=== PATIENT | male | born 1990 | race Caucasian/White ===

== ENCOUNTER 2020-01-28 08:57 | Emergency (ER) | payer OTHER ==
[~2020-01-28] VITALS: Ht 182.9 cm; Wt 152.3 kg
[2020-01-28 10:04] LABS: HEMATOCRIT 48.5 % (42.0-52.0); HEMOGLOBIN 15.5 g/dl (13.5-17.5); MEAN CORPUSCULAR HEMOGLOBIN 28.1 pg (27.0-33.0); MEAN CORPUSCULAR VOLUME 87.9 fl (80.0-96.0); PLATELET COUNT, AUTOMATED 305 10^3/uL (150-450); RED BLOOD COUNT 5.52 10^6/uL (4.30-6.10); WHITE BLOOD COUNT 6.9 10^3/uL (4.0-10.0)
[2020-01-28 10:21] LABS: AMPHETAMINES LEVEL URINE NEGATIVE (NEGATIVE); BARBITURATES URINE NEGATIVE (NEGATIVE); BENZODIAZEPINES URINE NEGATIVE (NEGATIVE); CANNABINOIDS URINE NEGATIVE (NEGATIVE); COCAINE METABOLITE URINE NEGATIVE (NEGATIVE); METHADONE URINE NEGATIVE (NEGATIVE); OPIATES URINE NEGATIVE (NEGATIVE); PHENCYCLIDINE URINE NEGATIVE (NEGATIVE)
[2020-01-28 10:36] LABS: ACETAMINOPHEN LEVEL < 2.0 UG/ML (10.0-30.0); ALBUMIN 4.2 GM/DL (3.2-5.2); ALT/SGPT 330 U/L (12-78); BILIRUBIN,DIRECT 0.3 MG/DL (0.0-0.2); BLOOD UREA NITROGEN 15 MG/DL (7-18); CALCIUM LEVEL 9.3 MG/DL (8.5-10.1); CARBON DIOXIDE LEVEL 26 MEQ/L (21-32); CHLORIDE LEVEL 106 MEQ/L (98-107); CREATININE FOR GFR 1.06 MG/DL (0.70-1.30); ETHYL ALCOHOL (ETHANOL) < 0.003 % (0.000-0.010); GLOMERULAR FILTRATION RATE > 60.0 (>60); GLUCOSE, FASTING 113 MG/DL (70-100); POTASSIUM SERUM 4.2 MEQ/L (3.5-5.1); SALICYLATE LEVEL < 1.7 MG/DL (5.0-30.0); SODIUM LEVEL 139 MEQ/L (136-145); TOTAL PROTEIN 7.6 GM/DL (6.4-8.2)
[2020-01-28] MEDS ORDERED: ACETAMINOPHEN TAB 650MG DOSE (2X325MG) PO ONE (17:45)
--- NOTE | 2020-01-29 09:33 | ECGEPIP ---
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
[2020-01-29 14:49] VITALS: BP 140/66
== END 2020-01-30 02:26 ==
LOC: M ED 08:57 → CANBEDREQ 01-29 16:43 → M ED 01-30 02:26
DX: R45.851 Suicidal ideations (principal)
CPT/HCPCS: 80048; 80076; 80307; 84443; 85027; 93005; 99284; G0480; U0002

== ENCOUNTER 2020-03-13 11:28 | Day surgery (SDC) | payer OTHER ==
[~2020-03-13] VITALS: Ht 182.9 cm; Wt 148.3 kg
[~2020-03-13 11:28] MED LIST: KETOROLAC 60MG 2ML VIAL As Ordered ONE; LIDOCAINE 2% 100MG/5ML SDV (FOR ANES.) As Ordered ONE; MIDAZOLAM INJ 2MG/2ML VIAL (J2250 PER 1MG) As Ordered ONE; ONDANSETRON 4MG/2ML VIAL As Ordered ONE; dexameTHASONE 4 MG/ML 1ML VIAL (J1100 PER 1MG) As Ordered ONE; fentaNYL 250 MCG/5 ML INJECTION (J3010) As Ordered ONE; propofoL 200 MG/20 ML VIAL As Ordered ONE
[2020-03-13] MEDS ORDERED: ceFAZolin SOD 1 GM in D5W MINI-BAG PLUS 50 ML IV ONE (12:00)
[2020-03-13] MEDS ORDERED: ceFAZolin SOD 2 GM in IV 1 EA IV ONE (12:00)
[2020-03-13] MEDS ORDERED: ROPIvacaine 0.5% 30ML INJECTION (J2795 PER 1MG) As Ordered ONE (12:08)
[2020-03-13] MEDS ORDERED: dexameTHASONE 10MG/1ML VIAL PRES.FREE (J1100 PER 1MG) As Ordered ONE (12:08)
[2020-03-13] MEDS ORDERED: MIDAZOLAM INJ 2MG/2ML VIAL (J2250 PER 1MG) As Ordered ONE (12:09)
[2020-03-13] MEDS ORDERED: fentaNYL 100 MCG/2 ML INJECTION (J3010) As Ordered ONE (12:09)
[2020-03-13] MEDS ORDERED: LIDOCAINE 1% MDV 20ML VIAL As Ordered ONE (12:09)
[2020-03-13] MEDS: fentaNYL 100 MCG/2 ML INJECTION (J3010) IV PRN ×2 (12:27→12:28)
[2020-03-13] MEDS: MIDAZOLAM INJ 2MG/2ML VIAL (J2250 PER 1MG) IV PRN ×2 (12:27→12:53)
[2020-03-13] MEDS ORDERED: ROPIvacaine 0.5% 30ML INJECTION (J2795 PER 1MG) XX ONE (12:45)
[2020-03-13] MEDS ORDERED: dexameTHASONE 10MG/1ML VIAL PRES.FREE (J1100 PER 1MG) XX ONE (12:45)
[2020-03-13] MEDS ORDERED: LIDOCAINE 1% MDV 20ML VIAL XX ONE (12:45)
[2020-03-13] MEDS ORDERED: ACETAMINOPHEN 1000MG 100ML IV BTL (OFIRMEV) (J0131 PER 10MG) As Ordered ONE (13:03)
--- NOTE | 2020-03-13 15:58 | REP ---
INDICATION: RIGHT KNEE ARTHROSOPIC. COMPARISON: None. TECHNIQUE: Three views. 10.5 seconds of fluoroscopy time is reported. FINDINGS: A sequence of 3 last image hold fluoroscopically obtained spot radiographs of the knee document orthopedic manipulation. No laterality markers are visible. IMPRESSION: Procedural imaging. <Electronically signed by Pramod Allen > 03/13/20 [id number]
[2020-03-13] MEDS ORDERED: ONDANSETRON 4MG/2ML VIAL As Ordered ONE (16:45)
[2020-03-13] MEDS ORDERED: HYDROMORPHONE HCL 0.5 MG/ 0.5 ML SYRINGE (J1170 PER 1) IV PRN (17:00)
[2020-03-13] MEDS ORDERED: LR 1,000 ML IV SCH ×2 (17:00)
[2020-03-13] MEDS ORDERED: oxyCODONE 5MG TAB PO PRN (17:00)
[2020-03-13] MEDS ORDERED: ONDANSETRON 4MG/2ML VIAL IV PRN (17:00)
[2020-03-13] MEDS ORDERED: fentaNYL 100 MCG/2 ML INJECTION (J3010) IV PRN (17:00)
--- NOTE | 2020-03-13 18:23 | RO ---
OPERATIVE NOTE DATE OF OPERATION: 03/13/2020 PREOPERATIVE DIAGNOSES: 1. Right knee anterior cruciate ligament (ACL) tear. 2. Right knee chondromalacia. POSTOPERATIVE DIAGNOSES: 1. Right knee anterior cruciate ligament (ACL) tear. 2. Right knee chondromalacia. PROCEDURES: 1. Right knee arthroscopic-assisted anterior cruciate ligament reconstruction with hamstring autograft. 2. Right knee arthroscopic chondroplasty. SURGEON: Anson Torres M.D. MOTOR AND GENERATOR ASSEMBLER: Gideon Kiser PA-C ANESTHESIA: General with preoperative nerve block. IV FLUIDS: Lactated ringers. ESTIMATED BLOOD LOSS: 25 mL. IMPLANTS: Arthrex TightRope x1 and Arthrex 8 x 30 BioComposite screw x1, and backup BioComposite SwiveLock on the tibia x1. Closure with nylon. DESCRIPTION OF PROCEDURE: The patient was identified in the preoperative holding area where the right knee was marked. He had an adductor canal block by Anesthesia. He was brought to the operating room and placed supine on a well-padded OR table. General anesthesia was induced. Examination under anesthesia revealed range of motion from 0-125 degrees. This was limited by body habitus not stiffness. He was grossly stable with varus and valgus stress. He had a positive Summer's modestly difficult to grade due to his size. Positive pivot shift. Negative posterior drawer. No patellar instability. A well-padded size 44 tourniquet, which is our largest, was applied to the proximal thigh. He was secured to the OR table. The right leg was then prepped and draped in the normal sterile fashion with ChloraPrep from the toes up to the tourniquet. He received 3 grams of IV cefazolin for antibiotic prophylaxis. Due to the patient's morbid obesity, this added a significant complexity to the case. Specifically, it more than doubled the time to harvest his hamstring tendons and made it difficult stabilizing his knee, including getting FlipCutter device to fit properly and also made it more challenging for hardware placement and fixation. Therefore, we will be requesting a modifier 22. So after a time-out per hospital protocol, the right leg was exsanguinated with an Esmarch bandage and the tourniquet inflated to 300 mmHg. The knee was insufflated with lactated ringers. Standard modified anterolateral portal was made with a #11 blade, 30-degree arthroscope introduced into the joint and diagnostic arthroscopy carried out. There was chondromalacia on the patella essentially grade 2. The medial and lateral facets were in good position. Trochlea in good condition. No loose bodies. Medial gutter was inspected. He already had osteophytes coming off the medial femoral condyle due to osteoarthritis from his obesity. Grade 1 chondromalacia in the medial compartment. No medial meniscus tears. Some of his ACL fibers were still present and scarred into the PCL; however, a large portion of fibers had torn off the femur and were flipped into the lateral compartment. The lateral meniscus was intact. The leg was brought out to the [id number] position with grade 1 chondromalacia. An anteromedial portal was created under direct visualization and on probing the ACL, it was under very poor tension. The shaver was used to remove all remaining ACL fibers. There was a positive empty notch sign prior to that. Medial and lateral meniscus were probed and there were no tears. Chondroplasty to the patella and medial femoral condyle. The knee was irrigated and drained. We then proceed with hamstring tendon autograft harvest. A 3 cm incision made with a 15-blade over the pes bursa. Dissection through extensive subcutaneous fat down to the bone. The hamstring tendons were palpable and a fresh 15-blade was used to incise the sartorius fascia in oblique fashion along the proximal extent of the gracilis. Hemostasis obtained with electrocautery. Two large [facility] retractors were used during that dissection. A fresh 15-blade was used to sharply elevate the far lateral extent of the gracilis and semi-t to obtain maximal length. Great care was taken to avoid any damage to the underlying medial collateral ligaments. So once the gracilis and semitendinosus were sharply elevated off the tibia, the border between the two was identified and developed. Each tail was whipstitched with #2 FiberWire in a running locking Krackow fashion. Any visible fascial bands were sharply divided with scissors. Blunt finger dissection was then carried out; again, the patient's morbid obesity added great difficulty to the preparing of the tendons to avoid premature amputation of his hamstrings; and given him being under 30 years old, it was very important to avoid using any allograft. So the open tendon stripper was then used to successfully harvest the gracilis and semitendinosus. They appeared to be of good quality and size. On the back table, my instructional assistant prepared the graft by scraping off the muscle and then whipstitching each end. These were doubled over and then placed under tension on the Graftmaster and sized to a size 8. Protected with a moist sponge. The FlipCutter was then introduced into the lateral portal with the scope in the medial portal and 1.5 incision was made with a 15-blade over the distal lateral femur. The IT band was split with a hemostat. So with the FlipCutter appropriately positioned in the joint, the bullet for the FlipCutter was malleted to be secured on bone. The FlipCutter was then drilled and entered the joint through the mi'kmaq ACL attachment anatomic location for a single-bundle ACL reconstruction. The FlipCutter was flipped and then, retrodrilled an 8-mm diameter tunnel 25 mm in length. The bony debris was removed with a shaver and then suctioned. The FiberStick was used to introduce a #2 FiberWire for graft passage. Next, the tibial tunnel was drilled with the guide pin entering the mi'kmaq ACL fibers on the tibia approximately 9 mm posterior to the intermeniscal ligament and just medial to the midpoint. An 8-mm barrel rifler was placed over the guide pin and the tunnel was completed. The shaver was used to remove soft tissue from the aperture to help prevent a cyclops lesion. Passing stitch was then retrieved out the tibial tunnel and the graft on the back table had been passed through the TightRope implant. So the TightRope sutures were passed into the joint and then out the lateral femoral condyle. Distal retraction was applied on the tibial sutures and the button felt secure. A large C-arm was used to confirm appropriate placement of the button and there was some soft tissue interposed. So, a hemostat and [employer] retractors were used to expose the soft tissues and then reposition the button so it would be sitting right on bone to avoid postop pain. Now, the white sutures were toggled and the 25 mm deneen was noted to pass into the femoral tunnel, so 25 mm of graft was docked into the tunnel, and distal traction on the tibial sutures confirmed that there was no bungee effect. Final position on the C-arm was confirmed. The knee was brought into full extension. There was no notch impingement. The knee was brought up into full extension, large bones placed under the femoral condyles, 9-0 wire passed between the graft and the tibial tunnel, and an 8 x 30 mm BioComposite Arthrex screw was placed over the 9-0 wire as I applied distal traction to the sutures and my instructional assistant applied a posterior drawer to the proximal tibia; again, the patient's size adding complexity to this maneuver. That screw had excellent fixation; but given the patient's morbid obesity and the fact that this was a soft tissue fixation on the ACL, this required a backup fixation to help avoid graft failure. So, the original whipstitch sutures were removed sharply and a fresh #2 FiberWire was used to place a Krackow suture through all four remaining tails of autograft tissue coming out the tibial tunnel, and then those two tails of FiberWire were loaded through a 4.75 mm BioComposite SwiveLock. The drill was used to a create unicortical drill hole of 2-3 cm distal to the tibial tunnel and then, the appropriate taps were used. The SwiveLock was docked, sutures tension anchored, and inserted by hand with excellent fixation to complete the backup fixation. The patient had a grade 1A Summer. Negative pivot shift. The scope was placed back in the joint, no screw was visible, and his ACL graft was probed and found to be under excellent tension. Tourniquet was let down with excellent reperfusion. All incisions irrigated. Ports were closed with nylon suture. The main tibial incision was enclosed with 2-0 Vicryl and running nylon. Lateral femur incision closed with 2-0 Vicryl and nylon. Bulky sterile dressing applied. He was then carefully placed into his brace locked in extension. He was extubated and transferred to the PACU in stable condition.
[2020-03-13 19:05] VITALS: BP 131/82
[2020-03-14] MEDS ORDERED: ASPIRIN 325 MG TAB PO SCH (09:00)
== END 2020-03-13 19:05 | disposition home or self-care (01) ==
LOC: M SDC 11:28
PROVIDERS: ATTEND Orthopaedic Surgery
DX: S83.31XA Tear of articular cartilage of right knee, current, initial encounter (principal); M94.261 Chondromalacia, right knee; X58.XXXA Exposure to other specified factors, initial encounter; Y92.89 Other specified places as the place of occurrence of the external cause; Y93.9 Activity, unspecified; Y99.9 Unspecified external cause status
CPT/HCPCS: 29877; 29888; 76000; C1713; J0131; J0690; J1100; J1885; J2250; J2405; J3010